=== PATIENT | female | born 1995 | race Caucasian/White ===

== ENCOUNTER 2019-10-07 11:50 | Emergency (ER) | payer BC ==
[2019-10-07 12:22] VITALS: BP 114/68; PULSE 87; TEMP 99.2; BMI 24.1
[2019-10-07] MEDS ORDERED: ONDANSETRON *ODT* 4 MG TABLET SL ONE (12:31)
[2019-10-07] MEDS ORDERED: ONDANSETRON *ODT* 4 MG TABLET ONE (12:39)
--- NOTE | 2019-10-07 13:24 | PDOC ---
History of Present Illness - General Chief Complaint: Respiratory Stated Complaint: FLU Time Seen by Provider: 10/07/19 12:05 - History of Present Illness Initial Comments: 10/07/19 13:18 23 years old with no significant past medical history presents to the emergency department with nausea vomiting status post taking Tamiflu. Patient was diagnosed with influenza A 2 days ago had fever chills body aches after taking first dose of Tamiflu and second dose of Tamiflu began developing nausea vomiting 3-4 episodes no abdominal pain no rashes no other travel sick contacts symptoms seem to have resolved mild persistent constant for this morning Past History - Past Medical History Allergies/Adverse Reactions: Allergies Allergy/AdvReac Type Severity Reaction Status Date / Time latex Allergy Unknown Verified 10/07/19 12:22 Penicillins Allergy Unknown Verified 10/07/19 12:02 EPIDURAL AdvReac Unknown Uncoded 10/07/19 12:22 Home Medications: Ambulatory Orders Levothyroxine [Synthroid -] 50 mcg PO DAILY 10/07/19 Ondansetron [Zofran *Odt*] 4 mg SL TID #21 od.tablet 10/07/19 Oseltamivir Phosphate [Tamiflu] 75 mg PO DAILY 10/07/19 COPD: No Thyroid Disease: Yes Other medical history: ACNE - Surgical History Appendectomy: Yes - Immunization History Immunization Up to Date: Yes - Psycho Social/Smoking Cessation Hx Smoking History: Never smoked Hx Alcohol Use: No Drug/Substance Use Hx: No Review of Systems - Review of Systems Comments:: 10/07/19 13:19 ROS: A complete review of 10 out of 10 review of systems is taken and is negative apart from what is previously mentioned below and in the HPI. *Physical Exam - Vital Signs Last Vital Signs Temp Pulse Resp BP Pulse Ox 99.2 F 87 16 114/68 99 10/07/19 12:02 10/07/19 12:02 10/07/19 12:02 10/07/19 12:02 10/07/19 12:02 - Physical Exam 10/07/19 13:19 Vitals: Triage Vital signs reviewed General Appearance: No acute distress, well nourished well developed, Cardiac: Regular rate and rhythym, no murmurs, no rubs, no gallops, Lungs: Clear to auscultation bilateral, good air movement bilaterally, Abdomen: Soft, non distended, normal bowel sounds, non tender to palpation Extremities: Full range of motion to all extremities, no cyanosis, clubbing, or edema Skin: Warm and dry, no rashes or lesions, no rash, no petechiae Psych: Normal mood, normal affect ED Treatment Course - Medications Given in the ED: ED Medications Discontinued Medications Generic Name Dose Route Start Last Admin Trade Name Ashley PRN Reason Stop Dose Admin Ondansetron HCl 8 mg 10/07/19 12:31 10/07/19 12:41 Zofran Odt - SL 10/07/19 12:32 8 mg ONCE ONE Administration Medical Decision Making - Medical Decision Making 10/07/19 13:20 Well-appearing no apparent distress with likely Tamiflu induced nausea vomiting patient with benign abdominal examination will treat with p.o. Zofran p.o. challenge observe and reassess Discharge - Discharge Information Problems reviewed: Yes Clinical Impression/Diagnosis: Nausea & vomiting Qualifiers: Vomiting type: unspecified Vomiting Intractability: non-intractable Qualified Code(s): R11.2 - Nausea with vomiting, unspecified Condition: Good - Admission No - Follow up/Referral Referrals: Ashanti Contreras MD [Primary Care Provider] - - Patient Discharge Instructions Additional Instructions: Stop taking Tamiflu. Take Zofran as prescribed small frequent fluid during the day continue Tylenol Motrin if needed for fever as directed on package if no vomiting by tomorrow morning okay to proceed to a bland diet. Return to the emergency department for any severe worsening symptoms or for any concerns. - Post Discharge Activity
== END 2019-10-07 13:37 | disposition home or self-care (01) ==
LOC: FER 11:50 → SUPCPDRO 11:50 → FER 13:37
DX: E07.9 Disorder of thyroid, unspecified (principal); Z88.0 Allergy status to penicillin; Z91.040 Latex allergy status; Z88.8 Allergy status to other drugs, medicaments and biological substances; L70.9 Acne, unspecified
CPT/HCPCS: 99281-25; Q0162